=== PATIENT | female | born 1990 | race Caucasian/White ===

== ENCOUNTER 2021-03-23 11:57 | Emergency (ER) | payer MEDICAID ==
[~2021-03-23] VITALS: Ht 157.5 cm; Wt 124.7 kg
[2021-03-23 12:13] VITALS: BP 152/110
== END 2021-03-23 12:57 | disposition home or self-care (01) ==
LOC: ED 12:51
DX: B34.9 Viral infection, unspecified (principal); Z20.822 Contact with and (suspected) exposure to COVID-19; J45.909 Unspecified asthma, uncomplicated; E66.9 Obesity, unspecified
CPT/HCPCS: 71045; 99284; U0003; U0005

== ENCOUNTER 2021-04-30 17:44 | Emergency (ER) | payer MEDICAID ==
[~2021-04-30] VITALS: Ht 157.5 cm; Wt 126.3 kg
[2021-04-30 18:20] LABS: BASOPHILS % (AUTO) 1 % (0-1); EOSINOPHILS % (AUTO) 1 % (1-7); LYMPHOCYTES % (AUTO) 29 % (22-44); MEAN CORPUSCULAR HGB CONC 34.9 g/dL (32.4-35.8); MEAN PLATELET VOLUME 9.2 fL (7.4-10.4); MONOCYTES % (AUTO) 7 % (2-9); NEUTROPHILS % (AUTO) 62 % (42-75); PLATELET COUNT 270 x10^3/uL (130-400); RED BLOOD COUNT 5.03 x10^6/uL (3.82-5.3); RED CELL DISTRIBUTION WIDTH 13.6 % (9.6-15.2)
[2021-04-30 18:29] LABS: ALBUMIN 3.2 g/dL (3.4-5.0); ANION GAP 8 mmol/L (5-15); CALCIUM 8.3 mg/dL (8.5-10.1); CHLORIDE 114 mmol/L (98-107); CREATININE 0.72 mg/dL (0.55-1.02)
[2021-04-30 18:35] LABS: ALANINE AMINOTRANSFERASE 29 U/L (12-78); ALKALINE PHOSPHATASE 64 U/L (45-117); BILIRUBIN,TOTAL 0.2 mg/dL (0.2-1.0)
--- NOTE | 2021-04-30 20:47 | NUR ---
compensation administrator: Pt walked back from lobby to room at this time. Steady upon ambulation.
--- NOTE | 2021-04-30 21:11 | NUR ---
DR. LAMAS TO BS FOR ASSESSMENT.
[2021-04-30] MEDS ORDERED: LIDOCAINE-MPF 1%, 5ML ONE ×2 (21:19→21:28)
[2021-04-30] MEDS ORDERED: LIDOCAINE 1%, 10ML INFIL ONE (21:30)
[2021-04-30 22:23] VITALS: BP 160/95
== END 2021-04-30 22:29 | disposition home or self-care (01) ==
LOC: ED 20:58
DX: L02.211 Cutaneous abscess of abdominal wall (principal); L02.215 Cutaneous abscess of perineum; J45.909 Unspecified asthma, uncomplicated; F17.200 Nicotine dependence, unspecified, uncomplicated; E66.9 Obesity, unspecified; Z68.43 Body mass index [BMI] 50.0-59.9, adult
CPT/HCPCS: 10061; 36415; 80053; 85025

== ENCOUNTER 2021-07-11 19:29 | Emergency (ER) | payer MEDICAID ==
[~2021-07-11] VITALS: Ht 157.5 cm; Wt 127.6 kg
[2021-07-11 19:59] VITALS: BP 148/100
== END 2021-07-11 20:33 | disposition home or self-care (01) ==
LOC: ED 19:59
DX: R05 Cough (principal); Z20.822 Contact with and (suspected) exposure to COVID-19; J45.909 Unspecified asthma, uncomplicated
CPT/HCPCS: 99283; U0003; U0005